=== PATIENT | male | born 1970 | race Caucasian/White ===

== ENCOUNTER → 2022-01-17 | Outpatient (CLI) | payer MEDICAID, MEDICARE ==
[~2022-01-17] MED LIST: AMIT25TA17 PO; GABA600T4 PO; IBUP80TA PO; LOSA50TA5; MELO15TA28 PO; MORP-69; PANT40TA29 PO; ROPI0.5T3 PO
== END ==
LOC: M LABSMTC 10:42
PROVIDERS: ATTEND Anesthesiology
DX: Z01.812 Encounter for preprocedural laboratory examination (principal); Z20.822 Contact with and (suspected) exposure to COVID-19

== ENCOUNTER 2022-01-22 09:31 | Day surgery (SDC) | payer MEDICAID, MEDICARE ==
[~2022-01-22] VITALS: Ht 167.6 cm; Wt 87.0 kg
[~2022-01-22 09:31] MED LIST changes: +NS 1,000 ML IV ONE
[2022-01-22] MEDS ORDERED: propofoL 200 MG/20 ML VIAL As Ordered ONE (11:08)
[2022-01-22] MEDS ORDERED: LIDOCAINE 2% INJ 100 MG/5 ML SYRINGE As Ordered ONE (11:08)
[2022-01-22 13:11] VITALS: BP 138/76
== END 2022-01-22 13:19 | disposition home or self-care (01) ==
LOC: M OPP 09:31
PROVIDERS: ATTEND Internal Medicine Gastroenterology
DX: Z12.11 Encounter for screening for malignant neoplasm of colon (principal); Z80.0 Family history of malignant neoplasm of digestive organs; K64.8 Other hemorrhoids; Z79.1 Long term (current) use of non-steroidal anti-inflammatories (NSAID); Z79.891 Long term (current) use of opiate analgesic; Z79.899 Other long term (current) drug therapy; Z87.891 Personal history of nicotine dependence; Z96.82 Presence of neurostimulator